=== PATIENT | female | born 1995 | race Caucasian/White ===

== ENCOUNTER 2022-06-21 09:26 | Inpatient (IN) | payer OTHER ==
[~2022-06-21] VITALS: Ht 165.1 cm; Wt 110.2 kg
[2022-06-21] VITALS (11 sets, daily range): BP systolic 99–146; BP diastolic 54–82
[2022-06-21] MEDS ORDERED: OXYTOCIN DRIP 30 UNITS in IV 1 EA IV PRN ×4 (10:35)
[2022-06-21] MEDS ORDERED: OXYTOCIN DRIP 30 UNITS in IV 1 EA IV SCH (10:35)
[2022-06-21] MEDS ORDERED: miSOPROStol 50MCG 1/2 TABLET PO ONE (10:35)
[2022-06-21] MEDS ORDERED: LIDOCAINE 1% MDV 20ML VIAL INFIL PRN (10:35)
[2022-06-21] MEDS ORDERED: CARBOPROST TROMETHAMINE 250 MCG/ML AMP IM PRN (10:35)
[2022-06-21] MEDS ORDERED: LACTATED RINGER'S 1000 ML IV STA (10:35)
[2022-06-21] MEDS ORDERED: LR 1,000 ML IV SCH ×2 (10:35)
[2022-06-21] MEDS ORDERED: METHYLERGONOVINE MALEATE 0.2 MG/ML VIAL (J2210) IM PRN (10:35)
[2022-06-21] MEDS ORDERED: OXYTOCIN INJ 10 UNITS/ML VIAL (J2590) IM PRN (10:35)
[2022-06-21] MEDS ORDERED: OXYTOCIN INJ 10 UNITS/ML VIAL (J2590) IV PRN (10:35)
[2022-06-21] MEDS ORDERED: TRANEXAMIC ACID INJection 1,000 MG in NS 100 ML IV PRN (10:35)
[2022-06-21] MEDS ORDERED: PRENTAB9 PO (10:52)
[2022-06-21 11:16] LABS: HEMATOCRIT 41.5 % (36.0-47.0); HEMOGLOBIN 13.7 g/dl (12.0-15.5); MEAN CORPUSCULAR HEMOGLOBIN 28.4 pg (27.0-33.0); MEAN CORPUSCULAR VOLUME 85.9 fl (80.0-96.0); PLATELET COUNT, AUTOMATED 225 10^3/uL (150-450); RED BLOOD COUNT 4.83 10^6/uL (4.00-5.40)
[2022-06-21] MEDS: miSOPROStol 50MCG 1/2 TABLET PO SCH ×2 (15:54→20:45)
[2022-06-22] VITALS (10 sets, daily range): BP systolic 104–133; BP diastolic 18–72
[2022-06-22] MEDS: miSOPROStol 50MCG 1/2 TABLET PO SCH
[2022-06-22] MEDS ORDERED: miSOPROStol 50MCG 1/2 TABLET PO ONE (03:20)
[2022-06-22] MEDS: OXYTOCIN DRIP 30 UNITS in IV 1 EA IV PRN ×2 (07:09→07:54)
[2022-06-22] MEDS ORDERED: LIDOCAINE 1% MDV 20ML VIAL As Ordered ONE (07:22)
[2022-06-22] MEDS ORDERED: LIDOCAINE 1% MDV 20ML VIAL SC ONE (07:25)
[2022-06-22] MEDS ORDERED: DIBUCAINE 1% OINTMENT 30GM TOP PRN (07:40)
[2022-06-22] MEDS ORDERED: ANUSOL HC CREAM 30GM TOP PRN (07:40)
[2022-06-22] MEDS ORDERED: METHYLERGONOVINE MALEATE 0.2 MG TAB PO PRN (07:40)
[2022-06-22] MEDS ORDERED: ACETAMINOPHEN 500 MG TAB PO PRN (07:40)
[2022-06-22] MEDS ORDERED: DOCUSATE SODIUM 100MG CAPSULE PO PRN (07:40)
[2022-06-22] MEDS ORDERED: MOM 30ML SUSPENSION UDC PO PRN (07:40)
[2022-06-22] MEDS ORDERED: OXYTOCIN 30 UNITS IN 0.9% NaCl 500ML IV BAG (J2590) As Ordered ONE (08:26)
[2022-06-22] MEDS: PRENATAL VITAMINS CHEWABLE TABLET PO SCH (09:00)
[2022-06-22] MEDS: IBUPROFEN 800 MG TAB PO PRN (14:36)
[2022-06-23] MEDS: IBUPROFEN 800 MG TAB PO PRN ×2 (04:25→15:16)
[2022-06-23 06:07] VITALS: BP 120/65
[2022-06-23] MEDS: PRENATAL VITAMINS CHEWABLE TABLET PO SCH (09:00)
[2022-06-23 18:00] VITALS: BP 104/57
[2022-06-24 06:00] VITALS: BP 107/70
[2022-06-24] MEDS: PRENATAL VITAMINS CHEWABLE TABLET PO SCH (08:16)
[2022-06-24] MEDS ORDERED: MEASLES,MUMPS,RUBELLA VACCINE INJ (MMR-II) (90707) SC.IMMUN ONE (09:00)
== END 2022-06-24 13:27 | disposition home or self-care (01) | DRG 807 ==
LOC: M LDO 09:26 → M LDI 10:28 → M OBS 06-22 11:02
PROVIDERS: ADMIT Obstetrics & Gynecology; ATTEND Obstetrics & Gynecology
PROC: 10E0XZZ Delivery of Products of Conception, External Approach (ICD-10-PCS; principal; 2022-06-22)
PROC: 0HQ9XZZ Repair Perineum Skin, External Approach (ICD-10-PCS; 2022-06-22)
DX: O42.12 Full-term premature rupture of membranes, onset of labor more than 24 hours following rupture (principal); Z37.0 Single live birth; Z3A.40 40 weeks gestation of pregnancy; O69.82X0 Labor and delivery complicated by other cord entanglement, without compression, not applicable or unspecified; O70.0 First degree perineal laceration during delivery

== ENCOUNTER → 2022-12-18 | Outpatient (CLI) | payer OTHER ==
[~2022-12-18] MED LIST: PRENTAB9 PO
== END ==
LOC: M WUC 13:20
PROVIDERS: ATTEND Physician Assistant
DX: S83.422A Sprain of lateral collateral ligament of left knee, initial encounter (principal)

== ENCOUNTER → 2024-08-04 | Outpatient (CLI) | payer OTHER | LOC: M RAD 15:02 | PROVIDERS: ATTEND Emergency Medicine | DX: J98.4 Other disorders of lung (principal) ==

== ENCOUNTER → 2024-12-16 | Outpatient (CLI) | payer OTHER | LOC: M CARPUL 10:56 | PROVIDERS: ATTEND Student in an Organized Health Care Education/Training Program | DX: R06.2 Wheezing (principal) ==